=== PATIENT | female | born 1970 | race Caucasian/White ===

== ENCOUNTER → 2018-07-31 | Outpatient (CLI) | payer BC ==
[~2018-07-31] MED LIST: AMOX500 PO; HYDACE5 PO; NAPR220; PROACE100 PO; PROM25 PO
[2018-08-02 15:09] LABS: HPV 16 Negative (Negative); HPV 18 Negative (Negative); HPV OTHER HR TYPES Negative (Negative)
== END | disposition home or self-care (01) ==
LOC: LAB 16:58 → LAB SHORT 16:58
PROVIDERS: Nurse Practitioner Women's Health
DX: Z12.4 Encounter for screening for malignant neoplasm of cervix (principal); Z91.89 Other specified personal risk factors, not elsewhere classified
CPT/HCPCS: 87624; G0123

== ENCOUNTER 2021-11-03 11:07 | Inpatient (IN) | payer SELFPAY ==
[~2021-11-03] VITALS: Ht 162.6 cm; Wt 63.1 kg
[~2021-11-03 11:07] MED LIST changes: -ASPI81CH PO; -ATOR10 PO; -Acetaminophen325 M1 PO; -CLOP75 PO
[2021-11-03 14:38] LABS: Anti-Xa UFH, PHA Monitoring <0.10 IU/mL; International Normalized Ratio 1.04; Prothrombin Time Results 10.9 Sec (9.7-11.5)
--- NOTE | 2021-11-03 15:14 | NUR ---
Pt is A&O x4, pleasant with cares. Dr. Boo Cardiology consulting in room, said to give heparin bolus and then pt will be taken [facility]. Said to hold off on heparin gtt for now. Echo completed while cyber ops planner was in room.
[2021-11-03 16:30] LABS: Influenza A, PCR NEGATIVE (NEGATIVE); Influenza B, PCR NEGATIVE (NEGATIVE); Resp Syncytial Virus, PCR NEGATIVE (NEGATIVE); SARS-Cov-2 (COVID-19) PCR, MMC NEGATIVE (NEGATIVE)
--- NOTE | 2021-11-03 18:10 | NUR ---
Pt is A&O,pleasant with cares. Heparin bolus given prior to heart cath per cardiology orders. No heparin gtt immediatly after heart cath, but cardiology would like it to be resumed after TR band has been removed. TR band has 11 cc in it. On arrival to floor there was a small hematoma right above band, lines drawn to see if it increases in size. VSS on RA. Headache and visual disturbances after heart cath. pt reported that the visual disturbances normally indicate migraine coming on. caffiene, tylenol and ibuprofen given with some effect.
--- NOTE | 2021-11-03 20:13 | NUR ---
ASSESSMENT OF HEMATOMA NOTED PRIOR SHIFT ABOVE RIGHT RADIAL TR BAND, SOFT NONBRUISING, 2CC OUT OF TR BAND AT 2010, 9CC LEFT, HEP GTT ON HOLD UNTIL TR BAND HAS BEEN REMOVED.
--- NOTE | 2021-11-03 20:55 | NUR ---
2 cc decreased TR Band, total 7 CC intact
--- NOTE | 2021-11-03 21:39 | NUR ---
2140 2cc removed TR Band, 5CC left
--- NOTE | 2021-11-03 21:58 | NUR ---
2155 removed 2 cc, 3 cc left
--- NOTE | 2021-11-03 22:22 | NUR ---
Removed remaining 3cc, in one hour will remove TR band and start hep gtt
[2021-11-04 05:58] LABS: BASOPHILS ABSOLUTE AUTO 0.06 K/mm3 (0.00-0.23); BASOPHILS PERCENT AUTO 1 % (0-2); EOSINOPHILS ABSOLUTE AUTO 0.11 K/mm3 (0.00-0.68); EOSINOPHILS PERCENT AUTO 2 % (0-6); IMMATURE GRAN ABSOLUTE AUTO 0.01 K/mm3 (0.00-0.10); IMMATURE GRAN PERCENT AUTO 0 % (0-1); LYMPHOCYTES ABSOLUTE AUTO 2.81 K/mm3 (0.84-5.20); LYMPHOCYTES PERCENT AUTO 44 % (21-46); MONOCYTES ABSOLUTE AUTO 0.52 K/mm3 (0.16-1.47); MONOCYTES PERCENT AUTO 8 % (4-13); Mean Corpuscular HGB 30.8 pg (26.0-34.0); Mean Corpuscular HGB Conc 34.1 g/dL (31.5-36.5); Mean Corpuscular Volume 90 fL (80-100); Mean Platelet Volume 9.1 fL (9.1-12.4); NEUTROPHILS ABSOLUTE AUTO 2.95 K/mm3 (1.96-9.15); NEUTROPHILS PERCENT AUTO 46 % (41-73); Platelet Count 240 K/mm3 (150-400); RDW Coefficient Variation 12.9 % (11.7-14.2); RDW Standard Deviation 42.8 fL (35.1-46.3); Red Blood Cell Count 4.87 M/mm3 (3.80-5.20); White Blood Cell Count 6.46 K/mm3 (4.00-11.30)
[2021-11-04 06:31] LABS: Anion Gap 5 mmol/L (6-16); Blood Urea Nitrogen 14 mg/dL (8-24); Bun/Creatinine Ratio 21.1 (12.0-20.0); CHOL/HDL RATIO 3.2; CO2, Blood 25 mmol/L (21-32); Calcium, Blood 8.3 mg/dL (8.5-10.1); Chloride, Blood 109 mmol/L (98-108); Cholesterol 196 mg/dL (50-200); Creatinine, Blood 0.66 mg/dL (0.40-1.00); Glomerular Filtration Rate >60 (60-); Glucose, Blood 95 mg/dL (70-99); HDL Cholesterol 61 mg/dL (>39); LDL/HDL RATIO 1.9; Low Density Lipoprotein Chol 119 mg/dL (0-110); Potassium, Blood 3.9 mmol/L (3.5-5.5); Sodium, Blood 139 mmol/L (136-145); Triglycerides 81 mg/dL (30-160); Very Low Density Lipoprot Chol 16 mg/dL (6-32)
[2021-11-04 06:43] LABS: Troponin I 0.685 ng/mL (0.000-0.040)
--- NOTE | 2021-11-04 12:40 | NUR ---
Pt is A&O, pleasant with cares. VSS on RA. Right radial site looks clean dry nontender and soft. Restrictions discussed with pt.Tele: SR 80s. No chest pain. Heparin gtt was running at 15unit/kg/hr prior to d/c.
[2021-11-04] MEDS ORDERED: Acetaminophen325 M1 PO (12:42)
[2021-11-04] MEDS ORDERED: ATOR10 PO (12:46)
[2021-11-04] MEDS ORDERED: CLOP75 PO (12:47)
[2021-11-04] MEDS ORDERED: ASPI81CH PO (12:47)
== END 2021-11-04 13:12 | disposition home or self-care (01) | DRG 287 ==
LOC: ER 11:07 → PCU 13:09
PROVIDERS: Internal Medicine Cardiovascular Disease; ADMIT Internal Medicine
PROC: 4A023N7 Measurement of Cardiac Sampling and Pressure, Left Heart, Percutaneous Approach (ICD-10-PCS; principal; 2021-11-03)
PROC: B2111ZZ Fluoroscopy of Multiple Coronary Arteries using Low Osmolar Contrast (ICD-10-PCS; 2021-11-03)
DX: I20.1 Angina pectoris with documented spasm (principal); I74.9 Embolism and thrombosis of unspecified artery; Z20.822 Contact with and (suspected) exposure to COVID-19; E78.5 Hyperlipidemia, unspecified; G43.909 Migraine, unspecified, not intractable, without status migrainosus; F17.210 Nicotine dependence, cigarettes, uncomplicated; Z82.49 Family history of ischemic heart disease and other diseases of the circulatory system; Z88.1 Allergy status to other antibiotic agents; Z88.5 Allergy status to narcotic agent
CPT/HCPCS: 0241U; 36415; 76937; 80048; 80061; 84484; 85025; 85520; 85610; 93005; 93010; 93306; 93454; 94760; 99152; 99285-25; A9270; C1769; C1887; C1894; J1644; J2250; J3010; J7030; J7040; Q9967

== ENCOUNTER → 2021-11-03 | Outpatient (CLI) | payer BC ==
[~2021-11-03] MED LIST changes: +ASPI81CH PO; +ATOR10 PO; +Acetaminophen325 M1 PO; +CLOP75 PO
[2021-11-03 10:02] LABS: BASOPHILS ABSOLUTE AUTO 0.04 K/mm3 (0.00-0.23); BASOPHILS PERCENT AUTO 1 % (0-2); EOSINOPHILS ABSOLUTE AUTO 0.01 K/mm3 (0.00-0.68); EOSINOPHILS PERCENT AUTO 0 % (0-6); Hematocrit 46.8 % (33.0-51.0); Hemoglobin 15.9 g/dL (11.5-16.0); IMMATURE GRAN ABSOLUTE AUTO 0.01 K/mm3 (0.00-0.10); IMMATURE GRAN PERCENT AUTO 0 % (0-1); LYMPHOCYTES ABSOLUTE AUTO 2.09 K/mm3 (0.84-5.20); LYMPHOCYTES PERCENT AUTO 30 % (21-46); MONOCYTES ABSOLUTE AUTO 0.47 K/mm3 (0.16-1.47); MONOCYTES PERCENT AUTO 7 % (4-13); Mean Corpuscular HGB 30.5 pg (26.0-34.0); Mean Corpuscular Volume 90 fL (80-100); Mean Platelet Volume 9.3 fL (9.1-12.4); NEUTROPHILS ABSOLUTE AUTO 4.47 K/mm3 (1.96-9.15); NEUTROPHILS PERCENT AUTO 63 % (41-73); Platelet Count 269 K/mm3 (150-400); RDW Coefficient Variation 13.1 % (11.7-14.2); Red Blood Cell Count 5.21 M/mm3 (3.80-5.20); White Blood Cell Count 7.09 K/mm3 (4.00-11.30)
[2021-11-03 10:11] LABS: Alanine Aminotransfer (ALT/SGP 23 U/L (12-78); Albumin, Blood 4.3 g/dL (3.4-5.0); Albumin/Globulin Ratio 1.3 (0.8-1.8); Alk Phos 60 U/L (40-126); Anion Gap 10 mmol/L (6-16); Aspartate Aminotrans (AST/SGOT 21 U/L (12-37); Bilirubin, Total 0.9 mg/dL (0.1-1.0); Blood Urea Nitrogen 16 mg/dL (8-24); Bun/Creatinine Ratio 22.9 (12.0-20.0); CO2, Blood 27 mmol/L (21-32); Calcium, Blood 9.1 mg/dL (8.5-10.1); Chloride, Blood 105 mmol/L (98-108); Globulin, Blood 3.4 g/dL (2.2-4.0); Glomerular Filtration Rate >60 (60-); Glucose, Blood 101 mg/dL (70-99); Potassium, Blood 4.4 mmol/L (3.5-5.5); Sodium, Blood 142 mmol/L (136-145); Total Protein, Blood 7.7 g/dL (6.4-8.2)
== END | disposition home or self-care (01) ==
LOC: LAB SHORT 09:48
PROVIDERS: Chiropractor
DX: R07.9 Chest pain, unspecified (principal)
CPT/HCPCS: 80053; 84484; 85025; 85379

== ENCOUNTER → 2022-07-11 | Outpatient (CLI) | payer SELFPAY ==
[~2022-07-11] MED LIST changes: +ASPI81CH PO; +ATOR10 PO; +Acetaminophen325 M1 PO; +CLOP75 PO
== END | disposition home or self-care (01) ==
LOC: LAB SHORT 13:17
DX: R07.89 Other chest pain (principal)
CPT/HCPCS: 85379

== ENCOUNTER → 2024-07-08 | Outpatient (CLI) | payer BC ==
[2024-07-08 18:46] LABS: Source, Urine Voided
[2024-07-08 19:26] LABS: Appearance, Urine Clear (Clear); Bilirubin, Urine Neg (Neg); Blood, Urine Neg (Neg); Color, Urine Yellow (P-Yellow); Glucose Qualitative, Urine Neg (Neg); Ketones, Urine Neg (Neg); Leukocyte Esterase, Urine Neg (Neg); Nitrite, Urine Neg (Neg); Protein, Urine Neg (Neg); Specific Gravity, Urine 1.015 (1.003-1.022); Urobilinogen, Urine NORM (Normal)
== END | disposition home or self-care (01) ==
LOC: LAB SHORT 18:43 → LAB 18:43
PROVIDERS: Physician Assistant
DX: N39.0 Urinary tract infection, site not specified (principal)
CPT/HCPCS: 81003; 87086